=== PATIENT | male | born 1955 | race Asian ===

== ENCOUNTER 2019-02-13 10:52 | Day surgery (SDC) | payer MEDICARE, MEDICAID ==
[2019-02-13] MEDS ORDERED: PROPOFOL 20 ML (13:27)
[2019-02-13 13:55] LABS: POTASSIUM 5.3 mmol/L (3.5-5.1)
== END 2019-02-13 16:20 | disposition home or self-care (01) ==
LOC: GIL 10:52
DX: D50.0 Iron deficiency anemia secondary to blood loss (chronic) (principal); K29.00 Acute gastritis without bleeding; E78.5 Hyperlipidemia, unspecified; E11.9 Type 2 diabetes mellitus without complications; I12.0 Hypertensive chronic kidney disease with stage 5 chronic kidney disease or end stage renal disease; N18.6 End stage renal disease; Z99.2 Dependence on renal dialysis
CPT/HCPCS: 43239; 82962; 84132; 88305; 88312